=== PATIENT | female | born 1950 | race Caucasian/White ===

== ENCOUNTER 2020-09-02 16:34 | Emergency (ER) | payer MEDICARE, BC ==
[~2020-09-02] VITALS: Ht 162.6 cm; Wt 87.0 kg
[2020-09-02] MEDS ORDERED: fentaNYL PF VIAL 100 MCG/2 ML VIAL IVP ONE ×2 (17:15→19:15)
--- NOTE | 2020-09-02 17:43 | RAD ---
Exam: Left wrist 3 views INDICATION: Fall TECHNIQUE: Frontal, lateral and oblique views left wrist Comparisons: None FINDINGS: Impacted fracture at the distal metaphysis of the left radius. Bone mineralization is normal. Strandy soft tissue swelling. Joint spaces are well-maintained IMPRESSION: Impacted fracture of the distal metaphysis of the left radius. Electronically signed by: Vipul Christopher MD (09/02/2020 5:40 PM) JOSÉ ANTONIO
--- NOTE | 2020-09-02 17:59 | PHYS DOC ---
Past Medical History Past Medical History: Asthma, High Cholesterol Past Surgical History: Appendectomy, Hysterectomy, Knee Replacement, Other Additional Past Surgical Histo: LT TIBIAL PLATEAU FX REPAIR 2006, BLADDER LIFT Smoking Status: Current Every Day Smoker Alcohol Use: None General Adult EDM: Chief Complaint: MECHANICAL FALL HPI: HPI: Patient is a 70 year old female who presents with states she was in her garage trying to smoke a cigarette when she lost balance and fell injuring her left wrist. She denies hitting her head no neck or back pain. She denies any other joint pain. Patient denies syncope, in her head, blood thinners, neck pain, back pain, hip pain, knee pain, ankle pain, foot pain, leg pain, shoulder pain. She states she does not really know how she fell on it. She has an obvious deformity to the left wrist on the radial side. Patient denies any numbness or tingling. Rates her pain 10 out of 10. Review of Systems: Review of Systems: Constitutional: Denies fever or chills. [] Eyes: Denies change in visual acuity. [] HENT: Denies nasal congestion or sore throat. [] Respiratory: Denies cough or shortness of breath. [] Cardiovascular: Denies chest pain. + Left wrist radial edema. [] GI: Denies abdominal pain, nausea, vomiting, bloody stools or diarrhea. [] : Denies dysuria. [] Musculoskeletal: Denies back pain. + Left wrist joint pain. [] Integument: Denies rash. [] Neurologic: Denies headache, focal weakness or sensory changes. [] Endocrine: Denies polyuria or polydipsia. [] Lymphatic: Denies swollen glands. [] Psychiatric: Denies depression or anxiety. [] Heart Score: Risk Factors: Risk Factors: DM, Current or recent (<one month) smoker, HTN, HLP, family history of CAD, obesity. Risk Scores: Score 0 - 3: 2.5% MACE over next 6 weeks - Discharge Home Score 4 - 6: 20.3% MACE over next 6 weeks - Admit for Clinical Observation Score 7 - 10: 72.7% MACE over next 6 weeks - Early Invasive Strategies Current Medications: Current Medications Medications (Trade) Dose Ordered Sig/Aleks Start Time Stop Time Status Last Admin Dose Admin Fentanyl Citrate (Fentanyl 2ml Vial) 50 mcg 1X ONCE 09/02/20 17:15 09/02/20 17:16 DC Allergies: Allergies: Allergies Coded Allergies Type Severity Reaction Last Updated Verified Sulfa (Sulfonamide Antibiotics) Allergy Unknown Hives 09/02/20 Yes meperidine Allergy Unknown Hives 09/02/20 Yes morphine Allergy Unknown Rash 09/02/20 Yes Physical Exam: PE: Constitutional: Well developed, well nourished, no acute distress, non-toxic appearance. [] HENT: Normocephalic, atraumatic, bilateral external ears normal, oropharynx moist, no oral exudates, nose normal. [] Eyes: PERRLA, EOMI, conjunctiva normal, no discharge. [] Neck: Normal range of motion, no tenderness, supple, no stridor. [] Cardiovascular:Heart rate regular rhythm, no murmur [] Lungs & Thorax: Bilateral breath sounds clear to auscultation [] Abdomen: Bowel sounds normal, soft, no tenderness, no masses, no pulsatile masses. [] Skin: Warm, dry, no erythema, no rash. [] Back: No tenderness, no CVA tenderness. [] Extremities: Left wrist tenderness, no cyanosis, no clubbing, left wrist ROM not intact, left radial wrist 2+ edema. [] Neurologic: Alert and oriented X 3, normal motor function, normal sensory function, no focal deficits noted. [] Psychologic: Affect normal, judgement normal, mood normal. [] Current Patient Data: Vital Signs: Vital Signs Date Time Temp Pulse Resp B/P (MAP) Pulse Ox O2 Delivery O2 Flow Rate FiO2 09/02/20 16:38 98.2 66 18 157/71 (99) 98 98.2 EKG: EKG: [] Radiology/Procedures: Radiology/Procedures: [] Impression: [facility] [address] [place], [place] [id number] IMAGING REPORT Signed PATIENT: LICHA COLEMAN ACCOUNT: [id number] : 1950 LOCATION: ER AGE: 70 SEX: F EXAM STATUS: REG ER ORD. PHYSICIAN: SHERRY WOODARD MD REASON: FALL / 14 PROCEDURE: WRIST 3V LEFT Exam: Left wrist 3 views INDICATION: Fall TECHNIQUE: Frontal, lateral and oblique views left wrist Comparisons: None FINDINGS: Impacted fracture at the distal metaphysis of the left radius. Bone mineralization is normal. Strandy soft tissue swelling. Joint spaces are well- maintained IMPRESSION: Impacted fracture of the distal metaphysis of the left radius. Electronically signed by: Vipul Ware MD (09/02/2020 5:40 PM) [facility] DICTATED and SIGNED BY: VIPUL WARE MD DATE: 09/02/20 [id number] 0 Course & Med Decision Making: Course & Med Decision Making Pertinent Labs and Imaging studies reviewed. (See chart for details) See HPI. Radial pulse strong and present. Cap refill less than 2 seconds. She can make a fist and wiggle her fingers but it does cause pain. No range of motion in the wrist due to pain and swelling. Wrist is 2+ swollen on the radial side. Patient is intact. X-ray shows impacted radial fracture. I have called and talked to Dr. Garrison and he states that the place the patient in a sugar tong and she can follow-up in the clinic. He took the patient's number down. Splint assessment: Neurovascularly intact post splint replacement with good fit. Patient's extremity symptoms have stabilized well they have been evaluated in the department and are appropriate for outpatient follow-up. No evidence of compartment syndrome, neurologic injury, vascular injury, open joint, open fracture, tendon laceration, or foreign body. [] Dragon Disclaimer: Dragon Disclaimer: This electronic medical record was generated, in whole or in part, using a voice recognition dictation system. Departure Departure Impression: Primary Impression: Distal radial fracture Qualified Codes: S52.502A - Unspecified fracture of the lower end of left radius, initial encounter for closed fracture Disposition: 01 DC HOME SELF CARE/HOMELESS Condition: STABLE Referrals: BENITA SANZ (PCP) CARLITOS ARORA MD Patient Instructions: Radial Fracture Additional Instructions: Follow-up with your orthopedic or the orthopedic I have referred you to soon as possible. Use ice and elevation to help with pain and swelling. Take medication as prescribed and with food. Remember these medications can make you sleepy. Scripts Tramadol Hcl (TRAMADOL HCL) 50 Mg Tablet 50 MG PO Q6HRS PRN for PAIN, #15 TAB Prov: DELBERT FLORES APRN 09/02/20 DELBERT FLORES APRN Sep 02, 2020 17:59
[2020-09-02] MEDS ORDERED: TRAM50TA PO (18:55)
[2020-09-02 19:35] VITALS: BP 141/67
== END 2020-09-02 21:23 | disposition home or self-care (01) ==
LOC: ER 16:34
DX: S52.502A Unspecified fracture of the lower end of left radius, initial encounter for closed fracture (principal); J45.909 Unspecified asthma, uncomplicated; E78.00 Pure hypercholesterolemia, unspecified; F17.210 Nicotine dependence, cigarettes, uncomplicated; Z88.1 Allergy status to other antibiotic agents; Z88.2 Allergy status to sulfonamides; Z88.5 Allergy status to narcotic agent; W18.39XA Other fall on same level, initial encounter; Y93.89 Activity, other specified; Y92.89 Other specified places as the place of occurrence of the external cause; Y99.8 Other external cause status
CPT/HCPCS: 29125; 73110; 96374; 96376; 99284; A4565; J3010